=== PATIENT | female | born 1980 | race Caucasian/White ===

== ENCOUNTER 2019-10-08 08:18 | Emergency (ER) | payer MEDICAID, SELFPAY ==
--- NOTE | ~2019-10-08 | XR_ITS ---
EXAMINATION: XR chest 2V DATE: 10/08/2019 09:06 INDICATION: Cough TECHNIQUE: PA and lateral views of the chest were obtained. COMPARISON: None FINDINGS: The lungs are clear with no focal airspace opacities, pulmonary edema, pleural effusion or pneumothor ax. The cardiomediastinal silhouette is normal. Mild thoracic spondylosis. IMPRESSION: 1. No acute cardiopulmonary disease. Reviewed, dictated and finalized at location [facility]
[2019-10-08 08:29] VITALS: BP 134/82; PULSE 96; RESP 18; TEMP 36.4; O2SAT 99
--- NOTE | 2019-10-08 08:48 | ED.GENADULT ---
HPI - General Adult General Chief complaint: Upper Respiratory Infection Stated complaint: cough and congestion Time Seen by Provider: 10/08/19 08:49 Source: patient and RN notes reviewed Mode of arrival: ambulatory Limitations: no limitations History of Present Illness HPI narrative: This is a 39 years old female presented office for evaluation of cold symptoms for several weeks.She saw her doctor a few weeks back for this symptom, who prescribed her antibiotic and cough syrup with codeine which has had her symptom temporarily and then everything came back on Monday.Symptoms include head congestion, stuffy nose, sneezing, with productive cough. Denies fever. Her son is sick with similar symptoms. She smokes a pack a day. Related Data Home Medications Medication Instructions Recorded Confirmed lisinopril 20 mg PO DAILY 10/08/19 10/08/19 Allergies Allergy/AdvReac Type Severity Reaction Status Date / Time No Known Allergies Allergy Verified 10/08/19 08:41 Review of Systems Review of Systems: Narrative: CONSTITUTIONAL: Denies fever ENT: Reports congestion, sore throat. Denies otalgia. CARDIOVASCULAR: Denies chest pain RESPIRATORY: Denies dyspnea, wheezing. Reports productive cough GASTROINTESTINAL: Denies abdominal pain, nausea, vomiting, diarrhea. GENITOURINARY: Denies urinary symptoms or discharge SKIN: Denies rash MUSCULOSKELETAL: Denies acute back pain NEUROLOGIC: Denies lightheaded PMFSH Social History Social History (Updated 10/08/19 @ 08:55 by ERI Delgado) Smoking packs per day: 1 Smoking cigarettes per day: 20.0 Smoking status: Current every day smoker Comments At time of signature, I agree with nursing past medical, surgical, social and family history. There is no relevant family history pertinent to the presenting complaint. Exam Narrative: Exam Narrative: GENERAL: This is a well-nourished, well-developed patient, in no apparent distress. EYES: Sclera clear/white. Vision is grossly intact. EARS: External ears normal, auditory canals clear and without drainage, TMs normal without perforation. Hearing grossly intact. NOSE: External nose normal with no obvious nasal discharge, nares erythema and edematous THROAT: Mucous membranes moist, posterior pharynx erythema with drainage NECK: Neck supple, non-tender without lymphadenopathy, masses or thyromegaly. CARDIOVASCULAR: Regular rate and rhythm without murmurs, gallops, or rubs. RESPIRATORY:Diminished breath sounds throughout. Breath sounds equal bilaterally. No wheezes, rales, or rhonchi. GASTROINTESTINAL: Abdomen soft, non-tender, nondistended. Bowel sounds are active. No guarding. SKIN: warm, intact with no suspicious lesions or rash, good texture and turgor. NEURO: awake, alert, and oriented to person, place and time. There were no obvious focal neurologic abnormalities. Steady gait [place] Coma Scale Eye Opening: Spontaneous 4 Karli Coma Scale Motor: Obeys Commands 6 Karli Coma Scale Verbal: Oriented 5 Course Vital Signs Vital signs: Vital Signs Temperature 97.5 F L 10/08/19 08:29 Pulse Rate 96 10/08/19 08:29 Respiratory Rate 18 10/08/19 08:29 Blood Pressure 134/82 10/08/19 08:29 Pulse Oximetry 99 10/08/19 08:29 Temperature 97.5 F L 10/08/19 08:29 Pulse Rate 96 10/08/19 08:29 Respiratory Rate 18 10/08/19 08:29 Blood Pressure 134/82 10/08/19 08:29 Pulse Oximetry 99 10/08/19 08:29 Medical Decision Making MDM Narrative Medical decision making narrative: Discharge instructions reviewed with patient, as well as provided in writing per nursing staff. The instructions also include specific and strict return/GO TO THE ER as well as f/u information. All questions have been answered, and the patient deny any further questions with discharge and discharge plan. Differential Diagnosis Differential Diagnosis: pneumonia, Allergic Rhinitis, Upper respiratory cough syndrome, Pharyngitis, Sin
== END 2019-10-08 09:20 | disposition home or self-care (01) ==
PROVIDERS: Emergency Provider Nurse Practitioner; PCP Physician Assistant
DX: J06.9 Acute upper respiratory infection, unspecified (principal); F17.200 Nicotine dependence, unspecified, uncomplicated; I10 Essential (primary) hypertension
CPT/HCPCS: 71046; 99213; G0463

== ENCOUNTER 2020-05-13 16:10 | Emergency (ER) | payer OTHER, SELFPAY ==
[2020-05-13 16:15] VITALS: BP 133/74; PULSE 100; RESP 18; TEMP 36.7; O2SAT 98
--- NOTE | 2020-05-13 16:20 | ED.URI ---
HPI - URI/Sore Throat General Chief Complaint: Upper Respiratory Infection Stated Complaint: sore throat/white spots on tongue Time Seen by Provider: 05/13/20 16:21 Source: patient and RN notes reviewed History of Present Illness HPI Narrative: Patient is a 40-year-old female who presents the urgent care with complaints of a sore throat and white spots on her tongue . Patient states that she is recently been on amoxicillin for a dental infection. Patient states her symptoms started on Monday and she has been using ibuprofen and salt water gargles for symptom relief. Patient denies of any fever, nausea, vomiting. No other acute complaints. No acute distress noted. Patient aware of the plan of care. Some parts of this dictation were generated by voice recognition software and may contain typographical and/or grammatical inaccuracies. Related Data Home Medications Medication Instructions Recorded Confirmed lisinopril 20 mg PO DAILY 10/08/19 05/13/20 Allergies Allergy/AdvReac Type Severity Reaction Status Date / Time No Known Allergies Allergy Verified 05/13/20 16:38 Review of Systems Review of Systems: Narrative: CONSTITUTIONAL: Denies fever, chills, or sweats. EYES: Denies visual changes, redness, or discharge. ENT: Reports of sore throat and white spots on the tongue CARDIOVASCULAR: Denies chest pain, palpitations, or edema. RESPIRATORY: Denies cough or dyspnea. GASTROINTESTINAL: Denies abdominal pain, nausea, vomiting, or diarrhea. GENITOURINARY: Denies dysuria or hematuria. SKIN: Denies rash or itching. MUSCULOSKELETAL: Denies back pain, joint pain, or myalgia. NEUROLOGIC: Denies headache, numbness, or weakness. All other systems reviewed are negative, except as documented in HPI. PMFSH Social History Social History (Updated 10/08/19 @ 08:55 by ERI Delgado) Smoking packs per day: 1 Smoking cigarettes per day: 20.0 Smoking status: Current every day smoker Comments At the time of my signature, I reviewed and agree with the nursing past medical, surgical, social, and family history. There is no relevant family history pertinent to the patient complaint. Exam Narrative: Exam Narrative: GENERAL: This is a well-nourished, well-developed patient, in no apparent distress. HEAD: normocephalic, atraumatic. EYES: PERRL. Sclera clear/white. Vision is grossly intact. EARS: External ears normal, auditory canals clear and without drainage, TMs normal without perforation. Hearing grossly intact. NOSE: External nose normal with no obvious nasal discharge, nares without redness, no rhinorrhea. THROAT: Mucous membranes moist, posterior pharynx clear. NECK: Neck supple, non-tender without lymphadenopathy, masses or thyromegaly. CARDIOVASCULAR: Regular rate and rhythm without murmurs, gallops, or rubs. RESPIRATORY: Clear to auscultation. Breath sounds equal bilaterally. No wheezes, rales, or rhonchi. SKIN: warm, intact with no suspicious lesions or rash, good texture and turgor. NEURO: awake, alert, and oriented to person, place and time. There were no obvious focal neurologic abnormalities. EXTREMITIES: No clubbing, cyanosis, or edema. Course Vital Signs Vital signs: Vital Signs Temperature 98.1 F 05/13/20 16:15 Pulse Rate 100 05/13/20 16:15 Respiratory Rate 18 05/13/20 16:15 Blood Pressure 133/74 05/13/20 16:15 Pulse Oximetry 98 05/13/20 16:15 Temperature 98.1 F 05/13/20 16:15 Pulse Rate 100 05/13/20 16:15 Respiratory Rate 18 05/13/20 16:15 Blood Pressure 133/74 05/13/20 16:15 Pulse Oximetry 98 05/13/20 16:15 Reviewed MDM - URI/Sore Throat MDM Narrative Medical decision making narrative: Reviewed lab results with the patient. She is aware that strep swab was negative. Educated patient on culture and we will call within 72 hours if culture is positive and antibiotics are necessary. Advised the patient to complete oral nystatin as prescribed. Make sure to take
== END 2020-05-13 16:55 | disposition home or self-care (01) ==
PROVIDERS: Emergency Provider Nurse Practitioner Family; PCP Physician Assistant
DX: B37.0 Candidal stomatitis (principal); F17.200 Nicotine dependence, unspecified, uncomplicated; I10 Essential (primary) hypertension
CPT/HCPCS: 87081; 87880; 99213; G0463

== ENCOUNTER 2021-01-05 16:00 | Outpatient (CLI) | payer OTHER, MEDICAID, SELFPAY | END 2021-01-05 16:01 | disposition home or self-care (01) | LOC: CHSLAB 16:07 | PROVIDERS: PCP Physician Assistant; Visit Provider Specialist | DX: L82.1 Other seborrheic keratosis (principal) | CPT/HCPCS: 88305 ==

== ENCOUNTER 2022-08-31 14:08 | Emergency (ER) | payer OTHER, MEDICAID, SELFPAY ==
--- NOTE | 2022-08-31 14:08 | ED.SKABFB ---
HPI - Skin/Abscess/Foreign Bdy General Chief complaint: Skin/Abscess/Foreign Body Stated complaint: Skin Sore Time Seen by Provider: 08/31/22 14:08 Source: patient Mode of arrival: ambulatory Limitations: no limitations History of Present Illness HPI narrative: Aniyah is a 42-year-old female patient presenting to the clinic today with complaints a sore to the left inner thigh. She reports this has been going on for years and it comes and goes however over the past few days his P come inflamed, fluctuant, and painful. Related Data Home Medications Medication Instructions Recorded Confirmed lisinopril 20 mg tablet 20 mg PO DAILY 10/08/19 08/31/22 Allergies Allergy/AdvReac Type Severity Reaction Status Date / Time No Known Allergies Allergy Verified 08/31/22 14:18 Review of Systems Review of Systems: Pertinent positives per HPI. Patient denies any fever, chills, rash, headache, visual changes, dizziness, cough, runny nose, sore throat, shortness of breath, chest pain, palpitations, nausea, vomiting, diarrhea, constipation, abdominal pain, or any urinary issues. PMFSH Past Medical History Medical History Hypertension Surgical History Surgical History H/O: hysterectomy History of 3 sections S/P appendectomy S/P endometrial ablation S/P tubal ligation [place] teeth removed Family History Family History Mother Alcoholism Hypertension Sibling Depression Grandparent History of cancer Diabetes mellitus Hypertension Social History Social History Smoking packs per day: 1 Smoking cigarettes per day: 20.0 Smoking status: Current every day smoker Comments At the time of my signature, I reviewed and agree with the nursing past medical, surgical, social, and family history. There is no relevant family history pertinent to the patient complaint. Exam Narrative: General: Well-developed, well nourished, in no apparent distress Head: Normocephalic, atraumatic. Cardio: Regular rate and rhythm, s1 and s2 normal, no murmur appreciated. Resp: Clear to auscultation bilaterally, no rhonchi, rales, wheezing or rubs. Integumentary: [place], warm, and dry, Mildly red, raised, indurated with fluctuance to the left inner thigh measuring 2 x 2 cm, tender to palpation. Course Course Emergency Course: Portions of this record may have been created with voice recognition software. Level of Care: Express Care Visit Vital Signs Vital signs: Vital Signs Temperature 36.6 C 08/31/22 14:16 Pulse Rate 103 H 08/31/22 14:16 Respiratory Rate 18 08/31/22 14:16 Blood Pressure 135/67 08/31/22 14:16 Pulse Oximetry 97 08/31/22 14:16 Oxygen Delivery Room Air 08/31/22 14:16 Temperature 36.6 C 08/31/22 14:16 Pulse Rate 103 H 08/31/22 14:16 Respiratory Rate 18 08/31/22 14:16 Blood Pressure 135/67 08/31/22 14:16 Pulse Oximetry 97 08/31/22 14:16 Oxygen Delivery Room Air 08/31/22 14:16 Vital signs reviewed Procedures Abscess I/D lower extremity: Date of Incision: 08/31/22 Side (if applicable): left Local Anesthetic: lidocaine 1% Amount of anesthesia used (mL): 2 Technique: incised with #11 blade Amount of fluid expressed (mL): 2 Irrigation: No Packing used?: none I&D Results: Pus and Blood Abcess I&D Additional Comments: Verbal consent obtained for incision and drainage. Risk and benefits explained and patient voiced understanding. Area was cleansed with betadine. Area was prepped and draped using sterile technique. 25 gauge needle was then used to instill (2) ml of lidocaine without epi into the wound edges. Patient tolerated well and anesthesia was appropriate.
[2022-08-31 14:16] VITALS: BP 135/67; PULSE 103; RESP 18; TEMP 36.6; O2SAT 97
== END 2022-08-31 14:55 | disposition home or self-care (01) ==
LOC: EXPBETH 14:11
PROVIDERS: Emergency Provider Nurse Practitioner Family; PCP Physician Assistant
DX: L73.2 Hidradenitis suppurativa (principal); F17.210 Nicotine dependence, cigarettes, uncomplicated; I10 Essential (primary) hypertension
CPT/HCPCS: 10060; 87070; 87205; 99213; G0463

== ENCOUNTER 2023-03-10 08:11 | Emergency (ER) | payer OTHER, MEDICAID, SELFPAY ==
[2023-03-10 08:15] VITALS: BP 124/60; PULSE 104; RESP 16; TEMP 35.7; O2SAT 97
--- NOTE | 2023-03-10 08:22 | ED.FEMALEGU ---
HPI - Female Genitourinary General Chief complaint: Urogenital-Female Stated complaint: poss uti / boil on rear Source: patient and RN notes reviewed History of Present Illness HPI Narrative: 42-year-old female presents to the [facility] today complaining of a possible UTI. Patient stated about 3 days ago she developed increased urination frequency and burning. Patient states that she feels like her bladder is full the time. Patient also states that she has a boil on her left groin area that she believes is reinfected. Patient stated earlier this year she had it lanced and drained and was put on doxy. Patient states she gets UTIs about 3 to 4 times a year. Patient states she never used to get UTIs but recently she is getting them frequently. Patient denies any abdominal pain, back pain, flank pain, or any blood in her urine. Patient denies any vaginal discharge or burning. Patient denies any discharge coming from her boil. Denies any fevers, chills, or vomiting. Patient denies any significant past medical history. Patient states that her primary said she might be prediabetic was going to be started on Ozempic for weight loss. Related Data Allergies Allergy/AdvReac Type Severity Reaction Status Date / Time No Known Allergies Allergy Verified 03/10/23 08:27 Review of Systems Review of Systems: Pertinent positives and pertinent negatives per HPI. [facility] Past Medical History Medical History Hypertension Surgical History Surgical History H/O: hysterectomy History of 3 sections S/P appendectomy S/P endometrial ablation S/P tubal ligation [place] teeth removed Family History Family History Mother Alcoholism Hypertension Sibling Depression Grandparent History of cancer Diabetes mellitus Hypertension Social History Social History Smoking packs per day: 1 Smoking cigarettes per day: 20.0 Smoking status: Current every day smoker Comments At the time of my signature, I reviewed and agree with the nursing past medical, surgical, social, and family history. There is no relevant family history pertinent to the patient complaint. Exam Narrative: GENERAL: This is a well-nourished, well-developed patient, in no apparent distress. HEAD: normocephalic, atraumatic. EYES: Sclera clear/white. Vision is grossly intact. EARS: External ears normal, auditory canals clear and without drainage, TMs normal without perforation. Hearing grossly intact. NOSE: External nose normal with no obvious nasal discharge, nares without redness, no rhinorrhea. THROAT: Mucous membranes moist, posterior pharynx clear. NECK: Neck supple, non-tender without lymphadenopathy, masses or thyromegaly. CARDIOVASCULAR: Regular rate and rhythm without murmurs, gallops, or rubs. RESPIRATORY: Clear to auscultation. Breath sounds equal bilaterally. No wheezes, rales, or rhonchi. GASTROINTESTINAL: Abdomen soft, non-tender, nondistended. Bowel sounds are active. No hepato-splenomegaly, or palpable masses. No guarding. SKIN: There is a 1.5 x 1.0cm area of induration located near her left inguinal area. There is no surrounding cellulitis, no area of fluctuance. The area is pale pink in color and warm with mild tenderness. NEURO: awake, alert, and oriented to person, place and time. There were no obvious focal neurologic abnormalities. EXTREMITIES: No clubbing, cyanosis, or edema. No joint tenderness, effusion, or edema noted. BACK: Nontender without deformity or crepitus. No flank tenderness. Course Course Level of Care: Express Care Visit Vital Signs Vital signs: Vital Signs Temperature 96.3 F L 03/10/23 08:15 Pulse Rate 104 H 03/10/23 08:15 Respiratory Rate 16 03/10/23 08:15
[2023-03-10 08:29] VITALS: BP 124/60; PULSE 104; RESP 16; TEMP 35.7; O2SAT 97
== END 2023-03-10 08:55 | disposition home or self-care (01) ==
PROVIDERS: Emergency Provider Nurse Practitioner Family; PCP Physician Assistant
DX: L02.214 Cutaneous abscess of groin (principal); N39.0 Urinary tract infection, site not specified; F17.210 Nicotine dependence, cigarettes, uncomplicated; I10 Essential (primary) hypertension
CPT/HCPCS: 81003; 87077; 87086; 87186; 99213; G0463

== ENCOUNTER 2023-03-31 08:02 | Emergency (ER) | payer OTHER, MEDICAID, SELFPAY ==
[2023-03-31 08:10] VITALS: BP 129/70; PULSE 85; RESP 18; TEMP 36.2; O2SAT 98
--- NOTE | 2023-03-31 08:16 | ED.FEMALEGU ---
HPI - Female Genitourinary General Chief complaint: Urogenital-Female Stated complaint: Urinary Problems Source: patient and RN notes reviewed History of Present Illness HPI Narrative: 42 yo F presents to urgent care with complaints of dysuria since yesterday. Pt states this would be her 3rd UTI in 2 months. Pt reports urinary frequency, urgency, and burning. Denies any fevers, vomiting, new back pain, flank pain, chest pain, or SOB. Pt has taken Azo this morning. Related Data Home Medications Medication Instructions Recorded Confirmed lisinopril 20 mg tablet 20 mg PO DAILY 03/31/23 03/31/23 Allergies Allergy/AdvReac Type Severity Reaction Status Date / Time No Known Allergies Allergy Verified 03/31/23 08:14 Review of Systems Review of Systems: Pertinent positives and pertinent negatives per HPI. [facility] Past Medical History Medical History Hypertension Surgical History Surgical History H/O: hysterectomy History of 3 sections S/P appendectomy S/P endometrial ablation S/P tubal ligation [place] teeth removed Family History Family History Mother Alcoholism Hypertension Sibling Depression Grandparent History of cancer Diabetes mellitus Hypertension Social History Social History Smoking packs per day: 1 Smoking cigarettes per day: 20.0 Smoking status: Current every day smoker Comments At the time of my signature, I reviewed and agree with the nursing past medical, surgical, social, and family history. There is no relevant family history pertinent to the patient complaint. Exam Narrative: GENERAL: This is a well-nourished, well-developed patient, in no apparent distress. HEAD: normocephalic, atraumatic. EYES: Sclera clear/white. Vision is grossly intact. EARS: External ears normal, auditory canals clear and without drainage. Hearing grossly intact. NOSE: External nose normal with no obvious nasal discharge, nares without redness, no rhinorrhea. THROAT: Mucous membranes moist, posterior pharynx clear. NECK: Neck supple, non-tender without lymphadenopathy, masses or thyromegaly. CARDIOVASCULAR: Regular rate RESPIRATORY: Clear to auscultation. Breath sounds equal bilaterally. No wheezes, rales, or rhonchi. GASTROINTESTINAL: Abdomen soft, non-tender, nondistended. Bowel sounds are active. No hepato-splenomegaly, or palpable masses. No guarding. SKIN: warm, intact with no suspicious lesions or rash, good texture and turgor. NEURO: awake, alert, and oriented to person, place and time. There were no obvious focal neurologic abnormalities. EXTREMITIES: No clubbing, cyanosis, or edema. No joint tenderness, effusion, or edema noted. BACK: Nontender without deformity or crepitus. No flank tenderness. Course Course Level of Care: Express Care Visit Vital Signs Vital signs: Vital Signs Temperature 97.2 F L 03/31/23 08:10 Pulse Rate 85 03/31/23 08:10 Respiratory Rate 18 03/31/23 08:10 Blood Pressure 129/70 03/31/23 08:10 Pulse Oximetry 98 03/31/23 08:10 Oxygen Delivery Room Air 03/31/23 08:10 Temperature 97.2 F L 03/31/23 08:10 Pulse Rate 85 03/31/23 08:10 Respiratory Rate 18 03/31/23 08:10 Blood Pressure 129/70 03/31/23 08:10 Pulse Oximetry 98 03/31/23 08:10 Oxygen Delivery Room Air 03/31/23 08:10 Reviewed MDM - Female Genitourinary MDM Narrative Medical decision making narrative: We will send a urine culture off to the lab; if the culture identifies an organism that the prescribed antibiotic will not treat, you will receive a phone call from an urgent care staff member and an appropriate antibiotic will be prescribed. -Your symptoms should begin to improve within a day of starting antibi
== END 2023-03-31 08:31 | disposition home or self-care (01) ==
PROVIDERS: Emergency Provider Nurse Practitioner Family; PCP Physician Assistant
DX: N39.0 Urinary tract infection, site not specified (principal); F17.210 Nicotine dependence, cigarettes, uncomplicated; I10 Essential (primary) hypertension
CPT/HCPCS: 81003; 87086; 87088; 99213; G0463